=== PATIENT | female | born 1995 | race Two or more races ===

== ENCOUNTER 2016-10-28 15:00 | Emergency (ER) | payer MEDICAID ==
[~2016-10-28] VITALS: Ht 172.7 cm; Wt 67.6 kg
[2016-10-28 16:11] VITALS: BP 116/68
== END 2016-10-28 16:48 | disposition home or self-care (01) ==
LOC: ER 15:07
DX: R10.9 Unspecified abdominal pain (principal); Z76.0 Encounter for issue of repeat prescription; F17.210 Nicotine dependence, cigarettes, uncomplicated